=== PATIENT | female | born 1990 | race Caucasian/White ===

== ENCOUNTER 2021-07-06 21:28 | Day surgery (SDC) | payer OTHER ==
[2021-07-06] MEDS ORDERED: hydrALAZINE 20 MG/ML VIAL SLOW IVP PRN (21:31)
[2021-07-06 21:43] VITALS: BMI 37.5
== END 2021-07-06 22:25 | disposition home or self-care (01) ==
LOC: CSHLD/OP 21:28
PROVIDERS: ATTEND Family Medicine
DX: O47.03 False labor before 37 completed weeks of gestation, third trimester (principal); O99.343 Other mental disorders complicating pregnancy, third trimester; F31.9 Bipolar disorder, unspecified; F25.9 Schizoaffective disorder, unspecified; Z3A.36 36 weeks gestation of pregnancy; Z87.891 Personal history of nicotine dependence; Z87.442 Personal history of urinary calculi; Z79.899 Other long term (current) drug therapy; Z96.0 Presence of urogenital implants; Z90.49 Acquired absence of other specified parts of digestive tract; Z98.890 Other specified postprocedural states
CPT/HCPCS: 99282

== ENCOUNTER 2021-07-27 15:59 | Day surgery (SDC) | payer OTHER ==
[2021-07-27 16:59] VITALS: BMI 37.5
[2021-07-27] MEDS ORDERED: hydrALAZINE 20 MG/ML VIAL SLOW IVP PRN (17:17)
[2021-07-27 17:39] LABS: Fetal Membranes Rupture No Membranes Rupture (No Rupture)
== END 2021-07-27 19:11 | disposition home or self-care (01) ==
LOC: CSHLD/OP 15:59
PROVIDERS: ATTEND Family Medicine
DX: O99.891 Other specified diseases and conditions complicating pregnancy (principal); N89.8 Other specified noninflammatory disorders of vagina; Z3A.39 39 weeks gestation of pregnancy
CPT/HCPCS: 84112

== ENCOUNTER 2021-07-31 17:58 | Day surgery (SDC) | payer OTHER ==
[2021-07-31 18:55] VITALS: BMI 38.0
[2021-07-31 19:33] LABS: Fetal Membranes Rupture No Membranes Rupture (No Rupture)
[2021-07-31] MEDS ORDERED: hydrALAZINE 20 MG/ML VIAL SLOW IVP PRN (20:22)
== END 2021-07-31 20:15 | disposition home or self-care (01) ==
LOC: CSHLD/OP 17:58
PROVIDERS: ATTEND Family Medicine
DX: O99.891 Other specified diseases and conditions complicating pregnancy (principal); N89.8 Other specified noninflammatory disorders of vagina; Z3A.39 39 weeks gestation of pregnancy; Z91.52 Personal history of nonsuicidal self-harm
CPT/HCPCS: 84112; 99284

== ENCOUNTER 2021-08-01 09:15 | Inpatient (IN) | payer OTHER ==
[2021-08-04 06:11] VITALS: BMI 38.0
[2021-08-04] MEDS: Lactated Ringer's 1,000 ML IV SCH ×2 (06:25→11:53)
[2021-08-04] MEDS ORDERED: Ondansetron PF 4 MG/2 ML Vial IVP PRN ×2 (06:34→11:51)
[2021-08-04] MEDS ORDERED: Butorphanol Tartrate 1 MG/ML VIAL SLOW IVP PRN (06:34)
[2021-08-04] MEDS ORDERED: Lidocaine 1% (PF) 30 ML VIAL SC PRN (06:34)
[2021-08-04] MEDS ORDERED: hydrALAZINE 20 MG/ML VIAL SLOW IVP PRN ×2 (06:34→15:42)
[2021-08-04] MEDS ORDERED: Promethazine HCl 25 MG/ML VIAL IM PRN ×2 (06:34→11:51)
[2021-08-04] MEDS ORDERED: Misoprostol 100 MCG TAB VAG SCH (06:45)
[2021-08-04] MEDS ORDERED: NS w/ Oxytocin 30 units 500 ML IVPB SCH (06:45)
[2021-08-04] MEDS ORDERED: Penicillin G Potassium 5 MILL.UNITS in Sodium Chloride 0.9% 100 ML IVPB SCH (06:45)
[2021-08-04] MEDS ORDERED: NS w/ Oxytocin 30 units 500 ML IV SCH ×2 (06:45)
[2021-08-04 07:11] LABS: Hemoglobin 10.5 g/dL (12.0-15.5); Mean Corpuscular HGB CONC 32.5 g/dL (32.0-36.0); Mean Corpuscular Hemoglobin 28.3 pg (27.0-33.0); Mean Corpuscular Volume 87.1 fl (81.6-98.3); Mean Platelet Volume 12.1 fl (7.4-10.4); Platelet Count 141 10x3/uL (150-450); Red Blood Cell (RBC) Count 3.71 10x6/uL (3.90-5.03); White Blood Cell (WBC) Count 10.5 10x3/uL (3.5-10.5)
[2021-08-04 08:16] LABS: Hep B Surf Ag Non-Reactive S/CO (NonReactive)
[2021-08-04 08:17] LABS: Syphilis Antibody Nonreactive (Nonreactive); Syphilis Antibody Index 0.05 S/CO (<1.00 Non-Reactive)
[2021-08-04 08:44] LABS: HBSAg Index 0.15 S/CO (0-0.99)
[2021-08-04] MEDS: Penicillin G 2.5 MILL.units 2.5 MILL.UNITS in Premix Bag 1 BAG IVPB SCH ×2 (10:41→16:31)
[2021-08-04] MEDS ORDERED: Fentanyl 2 mcg/Bup 0.1% Cadd 100 ML ONE (10:57)
[2021-08-04] MEDS ORDERED: Hydrocerin (Eucerin) Cream 120 gm Jar TOP PRN (11:51)
[2021-08-04] MEDS ORDERED: diphenhydrAMINE 50 MG/ML VIAL IVP PRN (11:51)
[2021-08-04] MEDS ORDERED: Naloxone HCl 0.4 mg/ml Vial IVP PRN ×2 (11:51)
[2021-08-04] MEDS ORDERED: ePHEDrine Sulfate 50 MG/10 ML VIAL SLOW IVP PRN (11:51)
[2021-08-04] MEDS ORDERED: Fentanyl 2 mcg/Bupivacaine 0.1% Cassette 100 ML EPIDURAL SCH (12:00)
[2021-08-04] MEDS ORDERED: Communication Order-Pharmacy FS SCH (12:00)
[2021-08-04] MEDS ORDERED: Lactated Ringer's 1,000 ML IV PRN (12:24)
[2021-08-04] MEDS ORDERED: Bupivacaine 0.25% HCL 30 ML VIAL ONE (13:10)
[2021-08-04] MEDS ORDERED: Misoprostol 200 MCG TAB ONE (13:11)
[2021-08-04] MEDS ORDERED: Methylergonovine 0.2 MG/ML VIAL ONE (13:12)
[2021-08-04] MEDS ORDERED: Carboprost 250 MCG/ML AMP ONE (13:12)
[2021-08-04] MEDS ORDERED: Milk Of Magnesia 30 ML UDCUP PO PRN (15:42)
[2021-08-04] MEDS ORDERED: Lanolin Ointment 7 GM TUBE TOP PRN (15:42)
[2021-08-04] MEDS ORDERED: Boostrix 0.5 ML (Tdap) VIAL IM ONE (15:42)
[2021-08-04] MEDS ORDERED: Bisacodyl 10 MG SUPP PR PRN (15:42)
[2021-08-04] MEDS: Ferrous Sulfate 325 MG TAB PO SCH (16:28)
[2021-08-04] MEDS: Acetaminophen 325 MG TAB PO PRN (17:56)
[2021-08-04] MEDS: Docusate Calcium (SURFAK) 240 MG CAP PO SCH (20:36)
[2021-08-04] MEDS: Ibuprofen 800 MG TAB PO SCH (20:36)
[2021-08-05] MEDS: Acetaminophen 325 MG TAB PO PRN ×4 (03:01→17:14)
[2021-08-05 05:28] LABS: Hemoglobin 9.8 g/dL (12.0-15.5)
[2021-08-05] MEDS: Ibuprofen 800 MG TAB PO SCH ×3 (06:24→22:00)
[2021-08-05] MEDS: Ferrous Sulfate 325 MG TAB PO SCH ×2 (08:45→17:14)
[2021-08-05] MEDS: Docusate Calcium (SURFAK) 240 MG CAP PO SCH ×2 (08:46→22:00)
[2021-08-05] MEDS: Prenatal Vitamin 1 TAB PO SCH (08:46)
[2021-08-05] MEDS ORDERED: diphenhydrAMINE 25 MG CAP PO SCH (22:00)
[2021-08-06] MEDS: Ibuprofen 800 MG TAB PO SCH (06:17)
[2021-08-06 07:50] VITALS: BP 122/72; TEMP 98.7
[2021-08-06] MEDS: Prenatal Vitamin 1 TAB PO SCH (07:53)
[2021-08-06] MEDS: Ferrous Sulfate 325 MG TAB PO SCH (07:53)
[2021-08-06] MEDS: Docusate Calcium (SURFAK) 240 MG CAP PO SCH (07:53)
== END 2021-08-06 12:29 | disposition home or self-care (01) | DRG 807 ==
LOC: CSHLD 08-04 05:38 → CSHPED 08-04 15:55
PROVIDERS: ADMIT Family Medicine; ATTEND Family Medicine
PROC: 10E0XZZ Delivery of Products of Conception, External Approach (ICD-10-PCS; principal; 2021-08-04)
DX: O48.0 Post-term pregnancy (principal); O69.81X0 Labor and delivery complicated by cord around neck, without compression, not applicable or unspecified; O99.824 Streptococcus B carrier state complicating childbirth; Z37.0 Single live birth; Z3A.40 40 weeks gestation of pregnancy
CPT/HCPCS: 36415; 51702; 85014; 85018; 85027; 86780; 86850; 86900; 86901; 87340; J2540; J2590; J3490; J7120; S0020

== ENCOUNTER 2021-08-02 13:08 | Outpatient (CLI) | payer OTHER ==
[2021-08-03 10:23] LABS: SARS-CoV-2 PCR by NAA Not Detected (NotDetected)
== END 2021-08-02 13:09 | disposition home or self-care (01) ==
LOC: CSHLAB 13:08
PROVIDERS: ATTEND Family Medicine
DX: Z20.822 Contact with and (suspected) exposure to COVID-19 (principal)
CPT/HCPCS: U0003; U0005